=== PATIENT | female | born 1960 | race Caucasian/White ===

== ENCOUNTER → 2024-02-03 15:45 | Outpatient (REF) | payer OTHER, SELFPAY | LOC: WDC 15:45 | PROVIDERS: ATTENDING PHYSICIAN Family Medicine | DX: Z12.31 Encounter for screening mammogram for malignant neoplasm of breast (principal) | CPT/HCPCS: 77063; 77067 ==

== ENCOUNTER → 2024-06-23 10:25 | Outpatient (REF) | payer OTHER, SELFPAY | LOC: REG 10:25 | PROVIDERS: ATTENDING PHYSICIAN Family Medicine | DX: M25.649 Stiffness of unspecified hand, not elsewhere classified (principal) | CPT/HCPCS: 73130 ==

== ENCOUNTER → 2024-07-03 06:19 | Outpatient (REF) | payer OTHER, SELFPAY | LOC: EMG 06:19 | PROVIDERS: ATTENDING PHYSICIAN Orthopaedic Surgery; FAMILY PHYSICIAN Family Medicine | DX: R20.0 Anesthesia of skin (principal) | CPT/HCPCS: 95886; 95911 ==

== ENCOUNTER → 2024-09-22 10:24 | Outpatient (REF) | payer OTHER, SELFPAY | LOC: RAD 10:24 | PROVIDERS: ATTENDING PHYSICIAN Student in an Organized Health Care Education/Training Program; FAMILY PHYSICIAN Family Medicine | DX: M25.60 Stiffness of unspecified joint, not elsewhere classified (principal); M53.3 Sacrococcygeal disorders, not elsewhere classified; M79.89 Other specified soft tissue disorders | CPT/HCPCS: 72202; 73130 ==